=== PATIENT | female | born 1990 | race African-American/Black ===

== ENCOUNTER 2024-12-21 10:49 | Emergency (ER) | payer MEDICAID, SELFPAY ==
[2024-12-21 10:54] VITALS: BP 141/77; PULSE 109; RESP 16; TEMP 36.8; O2SAT 99
[2024-12-21 11:28] VITALS: RESP 20; O2SAT 100
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
--- OUTSIDE RECORDS SUMMARY | 2024-12-21 12:30 | XMS_ITS | Encounter Summary ---
Author Organization [facility] Address [address] [place] [address] Care Team Providers Care Mortgage Servicing Specialist Name Role Phone Leonidas Pang DO Primary Care Provider [phone] Adwoa Monreal TELEPHONE SERVICE ADVISER-ASSISTANT FOOD SERVICE DIRECTOR Unavailable Kelley Cano RN Unavailable [phone] Encounter Details Date Type Department Care Team (Late st Contact Info) Description 12/12/2024 Ophth Exam [facility] - Ophthalmology [address] [place] [phone] Bre Bright MD [address] [place], [place] [id number] Social History Tobacco Use Types Packs/Day Years Used Date Smoking Tobacco: Former Cigarettes Smokeless Tobacco: Never Alcohol Use Standard Drinks/Week Comments Not Currently 0 (1 standard drink = 0.6 oz pur e alcohol) AUDIT-C Answer Date Recorded Q1: How often do you have a drink containing alcohol? Never 12/05/2024 Q2: How many drinks containi ng alcohol do you have on a typical day when you are drinking? Patient does not drink Q3: How often do you have si x or more drinks on one occasion? Never 12/05/2024 Overall Financial Resource Strain (CARDIA) Answe r Date Recorded How hard is it for you to pa y for the very basics like food, housing, medical care, and heating? Very hard 12/06/2024 PHQ-2 Answer Date Recorded Patient Health Questionnaire-2 Score 4 12/05/2024 [facility] [place] [facility] Occup[facility] - Occupational Stress Questionnaire Answer Date Recorded Do you feel stress - tense, restless, nervous, or anxious, or unable to sleep at night because your mind is troubled all the time - these days? Very much 12/06/2024 Hunger Vital Sign Answer Date Recorded Within the past 12 months, y ou worried that your food would run out before you got the money to buy more. Sometimes true Within the past 12 months, t he food you bought just didn't last and you didn't have money to get more. Sometimes true PRAPARE - Transportation Answer Date Re corded In the past 12 months, has l ack of transportation kept you from medical appointments or from getting medications? Yes 11/11 In the past 12 months, has l ack of transportation kept you from meetings, work, or from getting things needed for daily living? Yes 12/06/2024 Housing Stability Vital Sign Answer Phillip e Recorded In the last 12 months, was t here a time when you were not able to pay the mortgage or rent on time? No 05/20/2024 In the last 12 months, how many places have you lived? 1 05/20/2024 In the last 12 months, was t here a time when you did not have a steady place to sleep or slept in a long-term (including now)? No 05/20/2024 Housing Stability Vital Sign Answer Phillip e Recorded In the last 12 months, was t here a time when you were not able to pay the mortgage or rent on time? Yes 12/06/2024 In the past 12 months, how m any times have you moved where you were living? 3 12/06/2024 At any time in the past 12 m [facility], were you homeless or living in a long-term (including now)? Yes 12/06/2024 Comments No Sex and Gender Information Value Date Recorded Sex Assigned at Not on file Legal Sex Female 3:50 PM [employer] Gender Identity Not on file Sexual Orientation Not on file documented as of this encounter Functional Status * Is person deaf or have serious hearing difficulty? Answer Date of Assessment Author No 12/06/2024 12:15 AM Renetta Boo, RN * Is person blind or have serious difficulty seeing? Answer Date of Assessment Author No 12/06/2024 12:15 AM Renetta Boo RN * Does person have serious difficulty walking/climbing stairs? Answer Date of Assessment Author No 12/06/2024 12:15 AM Renetta Boo RN * Does person have difficulty dressing/bathing? Answer Date of Assessment Author No 12/06/2024 12:15 AM Renetta Boo RN * Does person have difficulty doing errands alone? Answer Date of Assessment Author No 12/06/2024 12:15 AM Renetta Boo RN documented as of this encounter Mental Status * Does person have difficulty concentrating/remembering/making decisions? Answer Entry Date Author No 12/06/2024 12:15 AM Renetta Boo RN documented in this encounter Plan of Treatment Upcoming Encounters Date Type Department Care Team (Late st Contact Info) Description 03/02/2025 8:00 AM CDT Office Visit [facility] - Ophthalmology [address] [place] [phone] documented as of this encounter Visit Diagnoses Not on filedocumented in this encounter Care Teams Mortgage Servicing Specialist Relationship Specialty Start Date End Date Leonidas Pang DO [address] [place] [phone] PCP - General Family Medicine 12/12/23 Adwoa Monreal APRN-ASSISTANT FOOD SERVICE DIRECTOR PCP - Attributed-[employer] 06/12/24 Kelley Lauren RN Research Study AssistantTobacco Sprayer 12/11/24 12/15/24 documented as of this encounter
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
--- OUTSIDE RECORDS SUMMARY | 2024-12-21 12:30 | XMS_ITS | Clinical Summary ---
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 11:05 PM CDT [facility] Blood BLOOD SPECIMEN / Unknown Venipuncture / Unknown 12/05/2024 9:51 PM CDT 12/05/2024 10:27 PM CDT Kacy Bryant COIL CLEANER-BOAT T[facility] LAB - CHEMISTRY ORDERAB LES Final Result Performing Organization Address [facility] [[email or web address]] Co de Phone Number [facility] [address] [place] [phone] * HEMOGLOBIN A1C (12/05/2024 9:51 PM CDT) Hemoglobin A1c 4.9 <5.7 % 12/05/2024 10:48 PM CDT [facility] Estimated Average Glucose 94 mg/dL 12/05/2024 10:48 PM CDT [facility] Blood BLOOD SPECIMEN / Unknown Venipuncture / Unknown 12/05/2024 9:51 PM CDT 12/05/2024 10:26 PM CDT Narrative [facility] - 12/05/2024 10:48 PM CDT HbA1c Interpretation: Normal: < 5.7% Pre-diabetes: 5.7-6.4% Diabetes: Equal to or greater than 6.5% Test results diagnostic of diabetes should be repeated for confirmation. Treatment target values recommended by ADA and other clinical organizations should be used to evaluate metabolic control in patients. This test should not replace glucose testing for patients with Type 1 diabetes, pediatric patients, or women. Falsely low HbA1c results may be observed in patients with clinical conditions that shorten erythrocyte life span or decrease mean erythrocyte age such as the presence of unstable hemoglobin variants, elevated hemoglobin F level or other causes of hemolytic anemia. HbA1c may not accurately reflect glycemic control when clinical conditions that affect erythrocyte survival are present. Severe Iron deficiency anemia may yield falsely high results. Hemoglobin A1c assay should not be used to diagnose or monitor diabetes in patients with malignancy, recent blood transfusion, chronic kidney or liver disease. This method may yield falsely low results when hemoglobin (HbF) exceeds 5% in the specimen. The [place]ello Alinity assay for the measurement of HbA1c is a National Glycohemoglobin Standardization Program (NGSP) certified method. Kacy Bryant COIL CLEANER-BOAT TENDER LAB - CHEMISTRY ORDERAB LES Final Result [facility] [address] [place] [address] * LIPID PROFILE (12/05/2024 9:51 PM CDT) Cholesterol 162 <200 mg/dL 12/05/2024 10:49 PM CDT [facility] Triglycerides 77 <150 mg/dL 12/05/2024 10:49 PM CDT [facility] HDL Cholesterol 49 >40 mg/dL 10:49 PM CDT [facility] LDL Calculated 98 <130 mg/dL 12/05/2024 10:49 PM CDT [facility] VLDL Calculated 15 <=30 mg/dL 5 10:49 PM CDT [facility] Chol HDL Ratio 3.3 <4.5 12/05/2024 10:49 PM CDT [facility] LDL/HDL Ratio 2.0 <5.0 12/05/2024 10:49 PM CDT [facility] Blood BLOOD SPECIMEN / Unknown Venipuncture / Unknown 12/05/2024 9:51 PM CDT 12/05/2024 10:27 PM CDT Kacy Bryant COIL CLEANER-BOAT TENDER LAB - CHEMISTRY ORDERAB LES Final Result Performing Organization Address City/[facility]/ZIP Co de Phone Number [facility] [address] [place] [address] * HIV-1 HIV-2 ANTIBODY + HIV P24 AG PANEL (03/26/2024 2:17 PM CDT) HIV1/2 Ab + P24 Ag Non Reactive Non Reactive 03/26/2024 4:06 PM CDT [facility] Blood BLOOD SPECIMEN / Unknown Venipuncture / Unknown 03/26/2024 2:17 PM CDT 03/26/2024 3:05 PM CDT Narrative [facility] - 03/26/2024 4:06 PM CDT No Laboratory evidence of HIV infection. Aaliyah Syed COIL CLEANER-BOAT TENDER LAB - CHEMISTRY ORDE RABLES Final Result [facility] [address] [place] [address] * HEPATITIS C ANTIBODY (11/21/2023 10:58 AM CDT) Hepatitis C Antibody Non Reactive Non Reactive [facility] INSURANCE BILL Comment: HCV antibody alone does not differentiate between previously resolved infection and active infection. Equivocal and Reactive HCV antibody results should be followed up with an HCV RNA test to support the diagnosis of active HCV infection. Blood BLOOD SPECIMEN / Unknown 11/21/2023 10:58 AM CDT 11/21/2023 Narrative Resulting Agency Comment Lab Testing performed at: [facility] [address] [facility] [phone] Mitch Adair MD LAB - CHEMISTRY ORDERABLES Final Result [facility] INSURANCE BILL [address] [place] [address] * PAP IG LB+HPV APTIMA (11/21/2023 10:54 AM CDT) Diagnosis [facility] INSURANCE BILL Comment:NEGATIVE FOR INTRAEP ITHELIAL LESION OR MALIGNANCY. Specimen Adequacy [facility] INSURANCE BILL Comment: Satisfactory for evaluation. Endocervical and/or squamous metaplastic cells (endocervical component) are present. Clinician Provided ICD10 [facility] INSURANCE BILL Comment: N91.2 Z20.2 Z32.01 Performed by [facility] INSURANCE BILL Comment:Love Robles, Cyto technologist (ASCP) Comment . [facility] INSURANCE BILL Note [facility] INSURANCE BILL Comment: The Pap smear is a screening test designed to aid in the detection of premalignant and malignant conditions of the uterine cervix. It is not a diagnostic procedure and should not be used as the sole means of detecting cervical cancer. Both false-positive and false-negative reports do occur. . [facility] CPT Code Automation [facility] INSURANCE BILL Comment: This liquid based ThinPrep(R) pap test was screened with the use of an image guided system. Human papillomavirus Aptima Negative Negative [facility] INSURANCE BILL Comment: This nucleic acid amplification test detects fourteen high-risk HPV types (16,18,31,33,35,39,45,51,52,56,58,59,66,68) without differentiation. Pathology/Cytolog y PART OF UTERINE CERVIX / Unknown 11/21/2023 10:54 AM CDT 11/21/2023 Narrative [facility] INSURANCE BILL - 11/25/2023 5:08 PM CDT No. of containers..01 ThinPrep Vial Resulting Agency Comment Lab Testing performed at: [address] [place] [id number] [place] Mitch Adair MD LAB - PATHOLOGY/CYTOLOGY OR DERABLES Final Result [facility] [address] [place] [address] from Last 3 Months or Most Recently Relevant to Health Maintenance Insurance [employer] Member Subscriber Plan / Payer ( fective 2024-Present) Name:Heide Gibbs Member ID:Not on file Relation to Subscriber:Self Name:Heide Gibbs Payer ID:[id number] (NAIC) Group ID:Not on file Type:Medicaid Managed Care Address: [place] [id number] MEDICA[employer] Advance Directives * Full Code (Latest Code Status on File) Date Activated Date Inactivated Comments 12/05/2024 8:59 PM 12/10/2024 6:57 PM * Full Code Date Activated Date Inactivated Comments 07/06/2024 4:52 AM 07/08/2024 1:19 PM * Full Code Date Activated Date Inactivated Comments 05/20/2024 3:11 PM 05/24/2024 3:12 PM * Full Code Date Activated Date Inactivated Comments 05/20/2024 10:57 AM 05/20/2024 3:11 PM Care Teams Optician Manager Relationship Specialty Start Date End Date Leonidas Pang DO [address] [place] [address] PCP - General Family Medicine 12/12/23 Adwoa Monreal APRN-BOAT TENDER PCP - Clarisse-Pennie [employer] [place] 06/12/24
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
--- NOTE | 2024-12-21 13:29 | PCCCNOTE ---
ED provider called, stated the pt needs to f/u with Ophthalmology however does not know where the pt will end up d/t her currently being homeless. Stated the pt can call Care Coordination here at [facility] and we can attempt to locate resources in her area when she finds housing.domenic
[2024-12-21] MEDS: KETOROLAC (*BKC) 60 MG/2 ML VIAL IM (13:49)
[2024-12-21] MEDS: POLYMYXIN/TRIMETHOPRIM OPHTH 10 ML DROPS 1 DROP EACH EYE (13:50)
[2024-12-21 14:00] VITALS: BP 134/80; PULSE 87; RESP 20; O2SAT 100
== END 2024-12-21 14:03 | disposition home or self-care (01) ==
PROVIDERS: Emergency Provider Registered Nurse
DX: S05.01XA Injury of conjunctiva and corneal abrasion without foreign body, right eye, initial encounter (principal); Y04.0XXA Assault by unarmed brawl or fight, initial encounter
CPT/HCPCS: 96372; 99283; A9270; J1885